=== PATIENT | male | born 1975 | race Two or more races ===

== ENCOUNTER 2022-02-15 10:53 | Emergency (ER) | payer OTHER ==
[~2022-02-15] VITALS: Ht 170.2 cm; Wt 77.1 kg
== END 2022-02-15 15:50 | disposition home or self-care (01) ==
LOC: ER 10:53
DX: S33.9XXA Sprain of unspecified parts of lumbar spine and pelvis, initial encounter (principal); X58.XXXA Exposure to other specified factors, initial encounter; Y93.89 Activity, other specified; Y92.89 Other specified places as the place of occurrence of the external cause; Y99.8 Other external cause status; Z88.8 Allergy status to other drugs, medicaments and biological substances

== ENCOUNTER 2023-02-03 10:02 | Outpatient (CLI) | payer OTHER | END 2023-02-03 10:08 | disposition home or self-care (01) | LOC: SONOGRAMA 10:02 | PROVIDERS: ATTEND Family Medicine | DX: M25.519 Pain in unspecified shoulder (principal); M54.2 Cervicalgia; Z88.8 Allergy status to other drugs, medicaments and biological substances ==